=== PATIENT | male | born 1955 | race Caucasian/White ===

== ENCOUNTER 2020-05-24 18:00 | Inpatient (IN) | payer MEDICARE, OTHER ==
[~2020-05-24] VITALS: Ht 175.3 cm; Wt 148.1 kg
--- NOTE | ~2020-05-24 | OR ---
[facility] [address] [place], [place] [address] Draft DATE OF OPERATION: 05/25/2020 SURGEON: Jovanna Crane MD PREOPERATIVE DIAGNOSES: 1. Gross hematuria. 2. Bilateral hydroureteronephrosis, right greater than left. 3. Onjqi-eb-vbmigoh renal failure. POSTOPERATIVE DIAGNOSES: 1. Diffuse, infiltrating, likely greatly advanced bladder tumor. 2. Bilateral hydroureteronephrosis, likely secondary to muscle invasion of bladder tumor, given the presentation noted on cystoscopy today. 3. Nkvpx-es-wgpsobf renal failure, likely secondary to obstruction from diffusely infiltrating bladder mass. NAMES OF PROCEDURES: 1. Urethral dilation from 18-Turkish to 26-Turkish using Socorro sounds. 2. Transurethral resection of bladder tumor - large, complicated. 3. Insertion of a 24-Turkish three-way Randolph catheter over a Sensor wire, then connected to continuous bladder irrigation. ANESTHESIA: General. ESTIMATED BLOOD LOSS: 500 mL. INTRAOPERATIVE FLUIDS: 1. 1300 mL of crystalloid. 2. 2 units of packed red blood cells. COMPLICATIONS: None. SPECIMENS: A very large amount of resected tissue from the hemorrhagic/necrotic bladder mass present within the bladder, sent to pathology for evaluation. DRAINS: PATIENT NAME: JANICE RUIZ OPERATIVE REPORT DATE OF : 59 REPORT #: [id number] PHYSICIAN: JOVANNA CRANE MD PCP: JANI CHARLES MD REPORT IS CONFIDENTIAL AND NOT TO BE RELEASED WITHOUT AUTHORIZATION [facility] [address] [place] [place], [place] [address] Draft A 24-Turkish three-way Randolph catheter, connected to continuous bladder irrigation. INDICATIONS FOR PROCEDURE: Mr. Ruiz is a very pleasant 64-year-old gentleman with a past medical history significant for insulin-dependent diabetes, hypertension, hyperlipidemia, and stage 2 chronic kidney disease, who presented to the Emergency Department yesterday with a one month history of progressively worsening gross hematuria and urinary incontinence symptoms. He was found to have a creatinine of 3 on evaluation in the emergency department. His urinalysis revealed the presence of blood, but no obvious infection. He subsequently underwent a non-contrasted CT of abdomen, which revealed bilateral hydroureteronephrosis, right side greater than left. He also noted with a very large heterogeneous mass within the bladder. Given the lack of contrast, it was difficult to discern whether this mass was a true filling defect or was secondary to a significant amount of blood product from active bleeding. The patient was admitted and Randolph catheter was inserted and the patient was placed on continuous bladder irrigation. He was also made n.p.o. On the following morning, I was able to evaluate him and made the decision to take him to the operating room to undergo cystoscopy with blood clot evacuation and possible TURBT/TURP. OPERATIVE FINDINGS: 1. Given the anticipation of using the resectoscope with a large 26-Turkish sheath, the patient's urethra was prophylactically dilated using Daniella sounds from 18-Turkish to 26-Turkish without difficulty. 2. Cystoscopy revealed a very significant amount of diffuse tumor present throughout the bladder. In particular, there was a very large necrotic mass located in the dome of the bladder. This mass measured approximately 8-10 cm in size and involved the entire dome of the bladder. There was other smaller masses located on the lateral noe and near the trigone of the bladder. As I resected, the large mass present on the dome of the bladder, it became obvious that it was had been there for quite some period of time and was likely heavily infiltrating. There also intermittent areas of hemorrhage within the mass itself. With all of the diffuse amount of bladder mass present throughout the bladder, I was unable to actually identify the bilateral ureteral orifices during the procedure. 3. I used a 24-Turkish bipolar loop to resect as much bladder tumor as I could handle. The sheer volume of tumor was unprecedented in my personal experience. The tumor at the dome of the bladder was so necrotic that it was not friable in nature. This was a very complicated resection, requiring a total resection time of approximately 3 hours. At the end of the resection, there was still a lot of bladder tumor remaining. However, at that time, I made the decision to terminate the procedure and transfer the patient to a higher level of care for definitive management with a urologic oncologist. 4. I did my best to cauterize actively bleeding areas within the wall of the bladder, however, a lot of the cauterization involved the bladder tumor, which made hemostasis a PATIENT NAME: JANICE RUIZ OPERATIVE REPORT DATE OF : 59 REPORT #: [id number] PHYSICIAN: JOVANNA CRANE MD PCP: JANI CHARLES MD REPORT IS CONFIDENTIAL AND NOT TO BE RELEASED WITHOUT AUTHORIZATION [facility] [address] [place] [place], [place] [address] Draft lot more difficult. Overall, at the end of the resection, I had a majority of the significant blood vessels cauterized appropriately. The patient's bladder was irrigated multiple times with a Ernst syringe to retrieve the significant amount of bladder tissue Re bladder tumor tissue resected from during the 3 hour resection. 5. At the end of the procedure, a 24-Turkish three-way Randolph catheter was inserted into the patient's bladder and connected to continuous bladder irrigation. DESCRIPTION OF PROCEDURE: After informed consent was obtained, the patient was taken back to the operating room. He was transferred from the [facility] to the operating room table, where general anesthesia was induced. He was placed in the dorsal lithotomy position and his genitalia were prepped and draped in a standard sterile fashion. His urethra was dilated using Socorro sounds from 18-Turkish to 26-Turkish without difficulty. A 26-Turkish sheath was then inserted using the visual obturator. I immediately noticed the presence of what appeared to be bladder tumor throughout the bladder, and particularly the dome of the bladder appeared to reveal a very large 8-10 cm necrotic infiltrating bladder mass. Again, I was unable to identify the bilateral ureteral orifices due to the extent of the bladder tumor. A 24-Turkish loop was then used to resect the very large tumor on the dome of the bladder, as well as tumors throughout the bladder on both sides. I did my best to avoid any area that would be considered to be near the area of the expected ureteral orifice. Total resection time was approximately 3 hours, making this a very difficult and complicated case. The patient's bladder was irrigated multiple times using a Ernst syringe, which produced a very large amount of necrotic bladder tumor as well as multiple large blood clots. Once I reached the 3-hour resection rowdy, I made the decision to terminate the procedure as at this time I realize that the patient would be best served by a higher level of care, i.e. a urologic oncologist. The tumor appears to be quite diffuse and almost certainly infiltrative. Once I was satisfied with the hemostasis, the patient's bladder was then irrigated one more time. I then passed a 0.035 Sensor wire through the sheath and into the patient's bladder. The sheath was removed fully intact. Over the wire, I passed a 24-Turkish three-way Randolph catheter into the patient's bladder. I filled the balloon with approximately 15 mL of sterile water. The catheter was then manually irrigated multiple times to: 1. Ensure proper placement of the catheter. 2. Irrigate any additional debris and blood clots from the bladder. The catheter was then connected to continuous bladder irrigation and the procedure was terminated. The patient tolerated the procedure well without any complication. He will now be transferred to the postanesthesia care unit in stable condition. DISPOSITION: I discussed the details of today's procedure with the patient's and answered all of her questions. I did notify her that her is a very advanced case of what is likely bladder cancer that is also likely infiltrated into the very far into the muscle PATIENT NAME: JANICE RUIZ OPERATIVE REPORT DATE OF : 59 REPORT #: [id number] PHYSICIAN: JOVANNA CRANE MD PCP: JANI CHARLES MD REPORT IS CONFIDENTIAL AND NOT TO BE RELEASED WITHOUT AUTHORIZATION [facility] [address] [place] [id number] Draft correction very relatively far into the wall of the bladder. I explained to her that this is likely the cause of the obstruction of both kidneys, as advanced and infiltrated bladder cancer very commonly affects drainage of the ureters. I told her that he will need to be transferred to a higher level of care where he can be definitively treated by a urologic oncologist. I suspect that he will likely require a cystectomy and possible neoadjuvant and adjuvant chemotherapy. The patient's verbalized understanding of this and the plan of care. He will be transferred now be transferred back to the floor with continued continuous bladder irrigation. He was given 1 g of IV Rocephin prior to surgery, and he will be given appropriate pain control. Dr. Deon Nascimento has accepted him in transfer after discussion of the case with Dr. Deon Nascimento. The patient will be transferred either later today or tomorrow to [facility] for definitive treatment of his likely advanced bladder cancer. MD KIP Sanders/FITO /[id number] Copies: ~ PATIENT NAME: JANICE RUIZ OPERATIVE REPORT DATE OF : 59 REPORT #: [id number] PHYSICIAN: JOVANNA CRANE MD PCP: JANI CHARLES MD REPORT IS CONFIDENTIAL AND NOT TO BE RELEASED WITHOUT AUTHORIZATION
[~2020-05-24 18:00] MED LIST: ALBUTEROL2.5 MG/3 M INH; ALLOPURINOL100 MG PO; AMLODIPINE BESY10 MG PO; ASPIR-LOW81 MG PO; COZAAR50 MG PO; DILTIAZEM 24HR300 MG PO; FENOFIBRATE54 MG PO; GABAPENTIN300 MG PO; GLUCOPHAGE1000 MG PO; HYDROCHLOROTHIA50 MG PO; IRON325 M1 PO; KLOR-CON M2020 MEQ PO; LIPITOR10 MG PO; MAG6464 MG PO; METOPROLOL SUCC50 MG PO; NOVOLIN N100 UNIT/1 SUB-Q; NOVOLIN R100 UNIT/1 INJ; OMEPRAZOLE20 MG PO; PRAVASTATIN SOD10 MG PO; TAMSULOSIN HCL0.4 MG PO
--- NOTE | 2020-05-24 22:43 | NUR ---
PLACED ON AUTO-TITRATING CPAP. PT DOES NOT KNOW HOME SETTINGS. CPAP RANGE SET BETWEEN [id number]. CURRENTLY TOLERATING WELL. PT HAS REFUSED HEAT IN THE CIRCUIT AT THIS TIME.
--- NOTE | 2020-05-24 23:00 | NUR ---
22fr 3WAY IRRIGATION CATHETER PLACED.
--- NOTE | 2020-05-25 00:59 | NUR ---
PORRAS EMPTIED PRIOR TO IRRIGATION, 400 [place] COLOR URINE OUT. CHANGED OUT CATH BAG, NOTEABLE SIZE CLOT FORMATION TUBING CATH BAG, AND PORRAS. APPROX 1.5 CM LONG, MORE THAN A STRINGY CLOT IN DIAMETER. CURRENTLY IRRIGATION WILL INFUSE THEN STOP. PT STATES STINGING SENSATION WHERE PORRAS GOES IN BUT NO COMPLAINTS, OR CONCERNS ABOUT HOW BLADDER IS FEELING. SLEEPING OFF AND ON WITH CPAP IN PLACE. THIS RN PAPR, ISOLATION PROCEDURES UNTIL COVID TESTING RESULTS AVAILABLE.
--- NOTE | 2020-05-25 01:50 | NUR ---
NOTIFIED DR BORJAS OF NO FLUIDS ORDERED DESPITE H/P INDICATING FLUIDS WOULD BE ORDERED. UPDATED ON PT CONDITION. PLAN TO UPDATE DR CRANE WELL
--- NOTE | 2020-05-25 02:00 | NUR ---
UPDATED DR CRANE. PT PORRAS HAS OUTPUT HOWEVER IRRIGATION IS NOT FLOWING CONSISTENTLY DESPITE IRRIGATION PREVIOUS TO THIS NOTE. SAID TO DECREASE AMOUNT IN BALLOON, REPOSITION, IF PT HAVING OUTPUT THEN OK TO STOP IRRIGATION. PLANS TO SEE PT IN AM. PT CONTINUES NPO
--- NOTE | 2020-05-25 02:15 | NUR ---
PT CALLED, THOUGHT HIS BS WAS LOW, HAD DROPPED HIS METER ON THE FLOOR. HAS AN IMPLANTED DEVICE LEFT UPPER ARM. BLOOD SUGAR WAS 103. NOTED IRRIGATION NOT INFUSIONING PT COMPLAINED OF MORE PRESSURE IN BLADDER AREA. DECREASE BY 15 ML OUT OF BALLOON, WITH NO OUTPUT. IRRIGATED PORRAS AGAIN, LONG STRINGY CLOT OUT WITH SUCCESSFUL OUTPUT. IRRIGATION FLOWING WELL. OUTPUT IN TUBING BRIGHT RED, WITH DECREASE COLOR TO PINK TINGE. PT STATES BLADDER FEELS MUCH BETTER.. EDUCATED PT ON ALARM OF IV. PT PRIMARY RN WILL BE IN SHORTLY. NOTED THAT PT WORE HIS CPAP UP TIL 0130, COMPLAINED HE WASN'T GETTING ENOUGH AIR, SATS IN THE 90'S. PT SAID THAT RT TOLD HIM "SETTINGS WERE AT THE HIGHEST", PT STATES HIS HOME CPAP HAD MORE "AIR". REMOVED CPAP.
--- NOTE | 2020-05-25 03:56 | NUR ---
PT AWAKE, PORRAS EMPTIED, AFTER DEDUCTING IRRIGATION FLUID, PT HAD 2800 OUT. CURRENTLY PORRAS TUBING WITH SL TINGED LIQUID, NOT URINE COLOR YET. PT STATES FEELS GOOD, NO PAIN. IRRIGATION FLOWING WELL, IV INFUSING. PT RECEIVED 1000 IV FLUIDS IN THE ED PRIOR TO ADMISSION. DOSING CURRENTLY.
--- NOTE | 2020-05-25 04:03 | NUR ---
REVIEWED ED NOTES, PT DID RECEIVE 1,000 IV BOLUS. DID VOID 75 PRIOR TO ADMISSION. ENTERED AMOUNT TO UPDATE HIS I/O.
--- NOTE | 2020-05-25 07:06 | NUR ---
Bedside report from ROCK Jorgensen. This nurse introduces self to patient. Patient denies needs at this time. call light in reach, Bed rails up X2.
--- NOTE | 2020-05-25 07:50 | NUR ---
Taken to surgery via bed by ROCK Castellanos.
[2020-05-25] MEDS ORDERED: ALDARA1 EACH TOP (10:54)
[2020-05-25] MEDS ORDERED: HYDROCHLOROTHIA25 MG PO (11:05)
[2020-05-25] MEDS ORDERED: METOPROLOL SUC100 MG PO (11:07)
[2020-05-25] MEDS ORDERED: OMEPRAZOLE40 MG PO (11:08)
--- NOTE | 2020-05-25 12:11 | NUR ---
05/25/20 1211 Molly Gambino 1153-PATIENT ARRIVED TO PACU ON [address]L [address]ASK[address] ST. PATIENT REACTIVE TO VERBAL STIMULI OPENS EYES VERY DROWSY ORAL AIRWAY REMOVED BY ARTHUR RN. [address] WAY CBI GOING INTO PORRAS CATHETER. DRAINING RED INTO PORRAS BAG. CBI OPENED AND URINE FLOW APPEARS MORE CLEAR. PATIENT IS ON 2ND UNIT OF PRBC AND ALMOST FINISHED INFUSING. GLUCOSE CHECKED 203. PATIENT HAS SLEEP APNEA AND PLAN TO SET UP CPAP. PATIENT ENCOURAGED TO TAKE DEEP BREATHES AND O2 INCREASES FROM 89%-92% 1203-PATIENT WEANED TO 6L MASK. RR EVEN. OPENS EYES TO VERBAL STIMULI VERY DROWSY NOT FOLLOWING COMMANDS. 02 SAT 95%
--- NOTE | 2020-05-25 13:31 | NUR ---
PATIENT RETURNS TO ROOM VIA BED WITH OR STAFF. REPORT RECIEVED. ASSESSMENT COMPLETED. PATIENT RESTING WITH EYES CLOSED AT THIS TIME. CONTINUOUS BLADDER IRRIGATION CONTINUES. REMAINS ON LR PER GRAVITY AT THIS TIME. CPAP IN PLACE WITH 4L/MIN OXYGEN BLEED. VS OBTAINED.
--- NOTE | 2020-05-25 14:21 | NUR ---
PT HAS JUST RETURNED FROM OR. DR BORJAS REQUESTED I FOLLOW UP WITH PT AND SPOUSE. PT ASLEEP AND NOT IN RM. WILL CHECK BACK
--- NOTE | 2020-05-25 14:45 | NUR ---
Resting in bed, CPAP remains on patien with O2 at 4l/min. Informed patient of need to remain on hospital CPAP due to O2 use. VS on and remain with slightly elevated BP noted, at baseline. Resp even and unlabored. call light in reach. Urine remains clear at this time. improved CBC noted.
--- NOTE | 2020-05-25 14:59 | NUR ---
FOLLOWING PT RETURNING FROM SURGERY, DR CRANE FELT IT WAS TO PTS' BEST INTERESTS TO BE TRANSFERRED. GAVE HIS SPOUSE LIFEFLIGHT PACK LIST AND CALLED [facility] AND CLARIFIED VISITOR POLICY. SHARED THIS WITH SPOUSE, NOT SURE IF SHE UNDERSTOOD BUT THINGS ARE MOVING VERY FAST. GOD BLESS THEM
[2020-05-25] MEDS ORDERED: CEFTRIAXONE1 G1 IV (15:16)
[2020-05-25] MEDS ORDERED: PROMETHAZINE HC25 MG PR (15:16)
[2020-05-25] MEDS ORDERED: MORPHINE SU4 MG/1 M1 IV (15:18)
[2020-05-25] MEDS ORDERED: BELLADONNA-OPIU30 MG PR (15:18)
[2020-05-25] MEDS ORDERED: OXYCODONE-ACET1 EAC1 PO (15:18)
--- NOTE | 2020-05-25 15:32 | NUR ---
MED REC COMPLETE
--- NOTE | 2020-05-25 16:10 | NUR ---
Taken by stretcher with EMS to be transferred to [facility] in [place], [place].
--- NOTE | 2020-05-25 19:08 | EKG ---
[facility] [address] [facility] [place] [address] Signed Undetermined rhythm Rightward axis Low voltage QRS Incomplete right bundle branch block T wave abnormality, consider inferior ischemia Abnormal ECG When compared with ECG of 28-JUL-2019 08:35, Current undetermined rhythm precludes rhythm comparison, needs review Confirmed by CORY BORJAS MD ([id number]) on 05/25/2020 7:08:42 PM Electronically Signed By: CORY BORJAS MD 05/25/20 1908 PATIENT NAME: JANICE SPAULDING Ronel Electrocardiogram DATE OF : 59 PHYSICIAN: CORY BORJAS MD REPORT #: [id number] REPORT IS CONFIDENTIAL AND NOT TO BE RELEASED WITHOUT AUTHORIZATION
--- NOTE | 2020-05-26 15:58 | PATH ---
[facility] [address] [facility] [place], [place] [address] Signed ORDERING PHYSICIAN: Zuly Velarde MD PATIENT NAME: JANICE SPAULDING GENDER: Jen : 1955 SPECIMEN(S): No Source Given MOLECULAR PATHOLOGY RESULTS: SARS-CoV-2 Not Detected ADDITIONAL NOTES.: The [place] Fusion SARS-CoV-2 Assay is a multiplex real-time PCR (RT-PCR) in vitro diagnostic test intended for the qualitative detection of RNA from SARS-CoV-2 from individuals who meet COVID-19 clinical and/or epidemiological criteria. In general, SARS-CoV-2 RNA can be detected during the acute phase of infection. Positive results indicate the presence of SARS-CoV-2 RNA. Clinical correlation with patient history and other diagnostic information is necessary to determine patient infection status. Positive results do not rule out bacterial infection or co-infection with other viruses. Negative results do not preclude SARS-CoV-2 infection and should not be used as the sole basis for patient management decisions. Negative results must be combined with other clinical observations, patient history, and epidemiological information. The [place] Fusion SARS-CoV-2 Assay is not yet approved or cleared by the [place] FDA. When there are no FDA-approved or cleared tests available, and other criteria are met, FDA can make tests available under an emergency access mechanism called an Emergency Use Authorization (EUA). The EUA for this test is supported by the Department [place] of Health and Human Service's (HHS's) declaration that circumstances exist to justify the emergency use of in vitro diagnostics for the detection and/or diagnosis of the virus that causes COVID-19. This EUA will remain in effect for the duration of the COVID-19 declaration justifying emergency of IVDs, unless it is terminated or revoked by FDA, after which the test may no longer be used. The [place] Fusion SARS-CoV-2 Assay is for use only under EUA in US laboratories certified under the Clinical Laboratory Improvement Amendments of 1988 (CLIA) to perform high complexity tests. [facility] is certified under CLIA to perform high complexity PATIENT NAME: JANICE SPAULDING Ronel PATHOLOGY DATE OF : 59 REPORT #: [id number] PHYSICIAN: LYDIA OLIVA PCP: JANI CHARLES MD REPORT IS CONFIDENTIAL AND NOT TO BE RELEASED WITHOUT AUTHORIZATION [address] [address] Signed clinical laboratory testing. PERFORMING LABORATORY.: Molecular testing was performed by [facility] [address] [place], [place] [address], [place] [address] ([place] [employer]: Dileep Lopez D.O.; CLIA#: [id number]) Diagnostician: System Interface Pathologist Electronically Signed 05/26/2020 Copies: ~ PATIENT NAME: JANICE SPAULDING Ronel PATHOLOGY DATE OF : 59 REPORT #: [id number] PHYSICIAN: LYDIA OLIVA PCP: JANI CHARLES MD REPORT IS CONFIDENTIAL AND NOT TO BE RELEASED WITHOUT AUTHORIZATION
== END 2020-05-25 16:00 | disposition short-term general hospital (02) | DRG 669 ==
LOC: ED 18:00 → MS 20:40
PROVIDERS: Urology; ADMIT Internal Medicine
PROC: 5A09357 Assistance with Respiratory Ventilation, Less than 24 Consecutive Hours, Continuous Positive Airway Pressure (ICD-10-PCS; 2020-05-24)
PROC: 0TBB8ZZ Excision of Bladder, Via Natural or Artificial Opening Endoscopic (ICD-10-PCS; principal; 2020-05-25 08:30)
DX: D49.4 Neoplasm of unspecified behavior of bladder (principal); N17.9 Acute kidney failure, unspecified; N13.30 Unspecified hydronephrosis; Z68.42 Body mass index [BMI] 45.0-49.9, adult; D50.0 Iron deficiency anemia secondary to blood loss (chronic); N13.9 Obstructive and reflux uropathy, unspecified; I12.9 Hypertensive chronic kidney disease with stage 1 through stage 4 chronic kidney disease, or unspecified chronic kidney disease; E11.22 Type 2 diabetes mellitus with diabetic chronic kidney disease; N18.2 Chronic kidney disease, stage 2 (mild); G47.33 Obstructive sleep apnea (adult) (pediatric); E78.00 Pure hypercholesterolemia, unspecified; E66.9 Obesity, unspecified; Z87.891 Personal history of nicotine dependence; Z79.82 Long term (current) use of aspirin; Z79.4 Long term (current) use of insulin; Z79.899 Other long term (current) drug therapy
CPT/HCPCS: 00912; 36415; 80048; 80053; 81001; 85025; 86850; 86900; 86901; 86920; 93005; 93010; 94660; 99284; J0696; J1100; J1170; J2270; J2405; J2704; J3010; J7030; J7040; J7121

== ENCOUNTER 2020-06-07 13:12 | Inpatient (IN) | payer MEDICARE, OTHER ==
[~2020-06-07] VITALS: Ht 175.3 cm; Wt 138.5 kg
[~2020-06-07 13:12] MED LIST changes: +ALDARA1 EACH TOP; +BELLADONNA-OPIU30 MG PR; +CEFTRIAXONE1 G1 IV; +HYDROCHLOROTHIA25 MG PO; +METOPROLOL SUC100 MG PO; +MORPHINE SU4 MG/1 M1 IV; +OMEPRAZOLE40 MG PO; +OXYCODONE-ACET1 EAC1 PO; +PROMETHAZINE HC25 MG PR
--- OUTSIDE RECORDS SUMMARY | 2020-06-07 13:16 | XMS ---
PreManage Notification: JANICE SPAULDING Security Counselor At [employer] Events No recent Security Events currently on file CRITERIA MET - [facility] - 2 Visits in 30 Days CARE PROVIDERS There are no care providers on record at this time. [facility] has no Care Guidelines for this patient. Meri VISIT COUNT (12 MO.) [facility] TOTAL 2 NOTE: Visits indicate total known visits. ED/C VISIT TRACKING (12 MO.) 06/07/2020 13:[address] [facility] TYPE: Emergency COMPLAINT: - MULTIPLE COMPLAINTS 05/24/2020 18:00 [facility] TYPE: Emergency COMPLAINT: - BLOOD IN URINE INPATIENT VISIT TRACKING (12 MO.) 05/25/2020 19:59 [facility] TYPE: Urology DIAGNOSES: - Unsteadiness on feet - infiltrating bladder tumor, gross hematuria, acute on chronic renal failure 05/24/2020 20:40 [facility] TYPE: Medical Surgical COMPLAINT: - ACUTE KIDNEY INJURY DIAGNOSES: - Other shelter (current) drug therapy - Body mass index (BMI) 45.0-49.9, adult - Acute kidney failure, unspecified - Body mass index (BMI) 45.0-49.9, adult - Personal history of nicotine dependence - Type 2 diabetes mellitus with diabetic chronic kidney disease - Obstructive sleep apnea (adult) (pediatric) - longterm (current) use of insulin - Other terminologist (current) drug therapy - Obesity, unspecified - longterm (current) use of insulin - Iron deficiency anemia secondary to blood loss (chronic) - Neoplasm of unspecified behavior of bladder - Personal history of nicotine dependence - Obstructive and reflux uropathy, unspecified - Unspecified hydronephrosis - Hypertensive chronic kidney disease with stage 1 through stag - longterm (current) use of aspirin - Neoplasm of unspecified behavior of bladder - Chronic kidney disease, stage 2 (mild) - Pure hypercholesterolemia, unspecified - longterm (current) use of aspirin - Obstructive sleep apnea (adult) (pediatric) - Unspecified hydronephrosis - Obstructive and reflux uropathy, unspecified - Obesity, unspecified - 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
[2020-06-07] MEDS ORDERED: FEOSOL325 MG PO (13:26)
[2020-06-07] MEDS ORDERED: OXYCODONE HCL5 MG PO (13:28)
[2020-06-08] MEDS ORDERED: SPIRONOLACTONE25 MG PO (07:08)
--- NOTE | 2020-06-08 07:33 | EKG ---
[facility] [address] [facility] [place], [place] [address] Signed Sinus tachycardia Right bundle branch block Abnormal ECG When compared with ECG of 25-MAY-2020 08:13, Previous ECG has undetermined rhythm, needs review Confirmed by CORY BORJAS MD ([id number]) on 06/08/2020 7:33:43 AM Electronically Signed By: CORY BORJAS MD 06/08/20 0733 PATIENT NAME: JANICE SPAULDING Electrocardiogram DATE OF : 59 PHYSICIAN: CORY BORJAS MD REPORT #: [id number] REPORT IS CONFIDENTIAL AND NOT TO BE RELEASED WITHOUT AUTHORIZATION
--- NOTE | 2020-06-08 17:24 | PATH ---
[facility] [address] [place], [place] [address] Signed ORDERING PHYSICIAN: Efrem Charles MD PATIENT NAME: JANICE SPAULDNIG GENDER: Jen : 1955 SPECIMEN(S): CLINICAL HISTORY: Routine Pap Smear MOLECULAR PATHOLOGY RESULTS: SARS-CoV-2 Not Detected ADDITIONAL NOTES.: The Quogue Fusion SARS-CoV-2 Assay is a multiplex real-time PCR (RT-PCR) in vitro diagnostic test intended for the qualitative detection of RNA from SARS-CoV-2 from individuals who meet COVID-19 clinical and/or epidemiological criteria. In general, SARS-CoV-2 RNA can be detected during the acute phase of infection. Positive results indicate the presence of SARS-CoV-2 RNA. Clinical correlation with patient history and other diagnostic information is necessary to determine patient infection status. Positive results do not rule out bacterial infection or co-infection with other viruses. Negative results do not preclude SARS-CoV-2 infection and should not be used as the sole basis for patient management decisions. Negative results must be combined with other clinical observations, patient history, and epidemiological information. The Quogue Fusion SARS-CoV-2 Assay is not yet approved or cleared by the [place] FDA. When there are no FDA-approved or cleared tests available, and other criteria are met, FDA can make tests available under an emergency access mechanism called an Emergency Use Authorization (EUA). The EUA for this test is supported by the [employer] Manager of Health and Human Service's (HHS's) declaration that circumstances exist to justify the emergency use of in vitro diagnostics for the detection and/or diagnosis of the virus that causes COVID-19. This EUA will remain in effect for the duration of the COVID-19 declaration justifying emergency of IVDs, unless it is terminated or revoked by FDA, after which the test may no longer be used. The Quogue Fusion SARS-CoV-2 Assay is for use only under EUA in US laboratories certified under the Clinical Laboratory Improvement PATIENT NAME: JANICE SPAULDING PATHOLOGY DATE OF : 59 REPORT #: [id number] PHYSICIAN: LYDIA PATHOLOGY PCP: EFREM CHARLES MD REPORT IS CONFIDENTIAL AND NOT TO BE RELEASED WITHOUT AUTHORIZATION [facility] [address] [place] [id number] Signed Amendments of 1988 (CLIA) to perform high complexity tests. [facility] is certified under CLIA to perform high complexity clinical laboratory testing. PERFORMING LABORATORY.: Molecular testing was performed by [facility] [address] [place] [id number] (Commercial Drafter: Dileep Lopez D.O.; CLIA#: [id number]) Diagnostician: System Interface Pathologist Electronically Signed 06/08/2020 Copies: ~ PATIENT NAME: JANICE SPAULDING Ronel PATHOLOGY DATE OF : [birth year] REPORT #: [id number] PHYSICIAN: LYDIA PATHOLOGY PCP: EFREM CHARLES MD REPORT IS CONFIDENTIAL AND NOT TO BE RELEASED WITHOUT AUTHORIZATION
[2020-06-15] MEDS ORDERED: AMLODIPINE BESY10 MG PO (12:23)
[2020-06-15] MEDS ORDERED: OXYCODONE HCL5 MG PO (12:24)
[2020-06-15] MEDS ORDERED: TYLENOL325 MG PO (12:25)
[2020-06-15] MEDS ORDERED: MAG-AL LIQUID30 ML PO (12:26)
[2020-06-15] MEDS ORDERED: SENNA LAX8.6 MG PO (12:26)
[2020-06-15] MEDS ORDERED: ONDANSETRON ODT4 MG PO (12:26)
[2020-06-15] MEDS ORDERED: LANTUS100 UNITS/ SUB-Q (12:27)
[2020-06-15] MEDS ORDERED: HUMALOG100 UNITS/ SUB-Q (12:29)
== END 2020-06-16 09:04 | DRG 872 ==
LOC: ED 13:12 → CCU 17:33 → MS 06-10 19:23
PROVIDERS: ADMIT Internal Medicine
DX: A41.50 Gram-negative sepsis, unspecified (principal); N39.0 Urinary tract infection, site not specified; N13.8 Other obstructive and reflux uropathy; N17.9 Acute kidney failure, unspecified; C67.9 Malignant neoplasm of bladder, unspecified; D50.9 Iron deficiency anemia, unspecified; G89.3 Neoplasm related pain (acute) (chronic); E11.65 Type 2 diabetes mellitus with hyperglycemia; Z20.828 Contact with and (suspected) exposure to other viral communicable diseases; I10 Essential (primary) hypertension; K21.9 Gastro-esophageal reflux disease without esophagitis; E78.5 Hyperlipidemia, unspecified; R19.7 Diarrhea, unspecified; E79.0 Hyperuricemia without signs of inflammatory arthritis and tophaceous disease; E83.42 Hypomagnesemia; Z96.0 Presence of urogenital implants; Z79.4 Long term (current) use of insulin
CPT/HCPCS: 36415; 71045; 80048; 80053; 81001; 82728; 83540; 83605; 83735; 84466; 84484; 85025; 87040; 87070; 87075; 87076; 87077; 87088; 87185; 87205; 87493; 93005; 93010; 96361; 96365; 97110; 97116; 97162; 97165; 97530; 97535; 99285-25; C9803; J0780; J1650; J1815; J2405; J2543; J2550; J3475; J3480; J7030; J7060; J7120; J7121

== ENCOUNTER 2022-01-23 12:19 | Emergency (ER) | payer MEDICARE ==
[~2022-01-23] VITALS: Ht 175.3 cm; Wt 138.5 kg
[~2022-01-23 12:19] MED LIST changes: +FEOSOL325 MG PO; +HUMALOG100 UNITS/ SUB-Q; +HUMULIN R100 UNIT/1 SUB-Q; +LANTUS100 UNITS/ SUB-Q; +MAG-AL LIQUID30 ML PO; +NYSTATIN15 G2 TOP; +ONDANSETRON ODT4 MG PO; +OXYCODONE HCL5 MG PO; +PROPRANOLOL HCL20 MG PO; +SENNA LAX8.6 MG PO; +SPIRONOLACTONE25 MG PO; +TYLENOL325 MG PO; +WARFARIN SODIUM5 MG PO
--- OUTSIDE RECORDS SUMMARY | 2022-01-23 12:22 | XMS ---
PreManage Notification: JANICE SPAULDING Security Orthotic Practitioner Events No recent Security Events currently on file CRITERIA MET - [facility]INSON[facility] CARE PROVIDERS LAURA GU Internal Medicine Current PHONE: [phone] JANI CHARLES [facility] 06/08/2020-Current PHONE: [phone] TEJ PATTERSON Physical Medicine \T\ Rehabilitation Current PHONE: [phone] Oracio has no Care Guidelines for this patient. E.D. VISIT COUNT (12 MO.) 1 [facility] TOTAL 1 NOTE: Visits indicate total known visits. ED/UCC VISIT TRACKING (12 MO.) 01/23/2022 12:20 [facility] TYPE: Emergency COMPLAINT: - POSS STROKE INPATIENT VISIT TRACKING (12 MO.) No inpatient visits to display in this time frame [id number]
[2022-01-23] MEDS ORDERED: CARVEDILOL12.5 MG PO (12:35)
--- NOTE | 2022-01-24 17:16 | EKG ---
[facility] [address] [address] Signed Normal sinus rhythm Right bundle branch block Abnormal ECG When compared with ECG of 07-JUN-2020 13:28, Vent. rate has decreased BY 55 BPM Non-specific change in ST segment in Inferior leads Non-specific change in ST segment in Anterior leads Nonspecific T wave abnormality has replaced inverted T waves in Inferior leads T wave inversion no longer evident in Anterior leads Confirmed by YANN MONROY MD ([id number]) on 01/24/2022 5:16:02 PM Electronically Signed By: YANN MONROY MD 01/24/22 1716 PATIENT NAME: JANICE SPAULDING Electrocardiogram DATE OF : 59 PHYSICIAN: YANN MONROY MD REPORT #: [id number] REPORT IS CONFIDENTIAL AND NOT TO BE RELEASED WITHOUT AUTHORIZATION
== END 2022-01-23 15:20 | disposition home or self-care (01) ==
LOC: ED 12:19
DX: I63.9 Cerebral infarction, unspecified (principal); I10 Essential (primary) hypertension; E11.9 Type 2 diabetes mellitus without complications; Z85.51 Personal history of malignant neoplasm of bladder; Z87.891 Personal history of nicotine dependence; Z79.899 Other long term (current) drug therapy; Z79.4 Long term (current) use of insulin; Z20.822 Contact with and (suspected) exposure to COVID-19
CPT/HCPCS: 70450; 80053; 85025; 85610; 85730; 93005; 93010; 99284-25; U0003

== ENCOUNTER 2022-02-14 12:57 | Emergency (ER) | payer MEDICARE ==
[~2022-02-14] VITALS: Ht 175.3 cm; Wt 141.1 kg
[~2022-02-14 12:57] MED LIST changes: +CARVEDILOL12.5 MG PO
--- OUTSIDE RECORDS SUMMARY | 2022-02-14 13:01 | XMS ---
PreManage Notification: JANICE SPAULDING Security Ad Compositor Events No recent Security Events currently on file CRITERIA MET - [facility] - 2 Visits in 30 Days - PDMP CARE PROVIDERS LAURA GU Internal Medicine Current PHONE: [phone] JANI CHARLES [facility] 06/08/2020-Current PHONE: [phone] TEJ APTTERSON Physical Medicine \T\ Rehabilitation Current PHONE: [phone] Oracio has no Care Guidelines for this patient. E.D. VISIT COUNT (12 MO.) 2 GURINDER Douglas TOTAL 2 NOTE: Visits indicate total known visits. ED/UCC VISIT TRACKING (12 MO.) 02/14/2022 12:58 [facility] TYPE: Emergency COMPLAINT: - BLOOD IN URINE 01/23/2022 12:20 [facility] TYPE: Emergency COMPLAINT: - POSS STROKE DIAGNOSES: - Anesthesia of skin - USP (current) use of insulin - Personal history of nicotine dependence - Type 2 diabetes mellitus without complications - Other snf (current) drug therapy - Personal history of malignant neoplasm of bladder - Essential (primary) hypertension - Cerebral infarction, unspecified INPATIENT VISIT TRACKING (12 MO.) No inpatient visits to display in this time frame [id number]
[2022-02-14] MEDS ORDERED: NOVOLOG FL100 UNIT/1 SUB-Q (13:33)
[2022-02-14] MEDS ORDERED: TRESIBA FL200 UNIT/1 SUB-Q (13:34)
[2022-02-14] MEDS ORDERED: CEPHALEXIN500 M1 PO (15:45)
== END 2022-02-14 16:04 | disposition home or self-care (01) ==
LOC: ED 12:57
DX: N39.0 Urinary tract infection, site not specified (principal); I10 Essential (primary) hypertension; E11.9 Type 2 diabetes mellitus without complications; Z87.891 Personal history of nicotine dependence; Z79.4 Long term (current) use of insulin; Z79.899 Other long term (current) drug therapy
CPT/HCPCS: 51701; 81001; 99283-25; A9270

== ENCOUNTER 2022-09-25 16:57 | Emergency (ER) | payer MEDICARE, OTHER ==
[~2022-09-25] VITALS: Ht 175.3 cm; Wt 140.6 kg
[~2022-09-25 16:57] MED LIST changes: +CEPHALEXIN500 M1 PO; +CEPHALEXIN500 MG PO; +MAGNESIUM100 MG PO; +NOVOLOG FL100 UNIT/1 SUB-Q; +TRESIBA FL200 UNIT/1 SUB-Q
[2022-09-25] MEDS ORDERED: CEPHALEXIN500 M1 PO (22:09)
== END 2022-09-25 22:30 | disposition home or self-care (01) ==
LOC: ED 16:57
DX: K43.5 Parastomal hernia without obstruction or gangrene (principal); L03.311 Cellulitis of abdominal wall; I10 Essential (primary) hypertension; E11.9 Type 2 diabetes mellitus without complications; Z79.4 Long term (current) use of insulin; Z86.73 Personal history of transient ischemic attack (TIA), and cerebral infarction without residual deficits; Z87.891 Personal history of nicotine dependence; Z88.8 Allergy status to other drugs, medicaments and biological substances; Z79.899 Other long term (current) drug therapy
CPT/HCPCS: 36415; 74177; 80053; 85025; Q9967

== ENCOUNTER 2023-02-08 13:17 | Inpatient (IN) | payer MEDICARE, OTHER ==
[~2023-02-08] VITALS: Ht 175.3 cm; Wt 137.9 kg
[~2023-02-08 13:17] MED LIST changes: +BACTRIM DS TAB1 EACH PO
--- OUTSIDE RECORDS SUMMARY | 2023-02-08 13:20 | XMS ---
PreManage Notification: JANICE SPAULDING Security Communications Assistant Events No recent Security Events currently on file CRITERIA MET - [facility] - 2 Visits in 30 Days - PDMP CARE PROVIDERS LAURA GU Internal Medicine Current PHONE: [phone] JANI CHARLES [facility] 06/08/2020-Current PHONE: [phone] TEJ PATTERSON Physical Medicine \T\ Rehabilitation Current PHONE: [phone] JOCELIN HULL [facility] Current PHONE: Unknown Oracio has no Care Guidelines for this patient. Meri VISIT COUNT (12 MO.) 1 [facility] 5 GURINDER [facility] TOTAL 6 NOTE: Visits indicate total known visits. ED/UCC VISIT TRACKING (12 MO.) 02/08/2023 13:19 [facility] [place] TYPE: Emergency COMPLAINT: - ABNORMAL LABS 02/07/2023 00:58 [facility] TYPE: Emergency DIAGNOSES: [id number]. Agustín issues [id number]. Acute kidney failure, unspecified 12/24/2022 22:48 [facility] TYPE: Emergency COMPLAINT: - VOMITING DIAGNOSES: - Allergy status to other drugs, medicaments and biological substances - Personal history of transient ischemic attack (TIA), and cerebral infarction without residual deficits - Type 2 diabetes mellitus without complications - terminal worker (current) use of insulin - Hemorrhage of incontinent external stoma of urinary tract - Urinary tract infection, site not specified - Contact with and (suspected) exposure to COVID-19 - Essential (primary) hypertension - Other tank terminal gauger (current) drug therapy - Other medical procedures as the cause of abnormal reaction of the patient, or of later complication, without mention of misadventure at the time of the procedure - Syncope and collapse 09/25/2022 16:58 [facility] TYPE: Emergency COMPLAINT: - WOUND CHECK DIAGNOSES: - Allergy status to other drugs, medicaments and biological substances - Personal history of transient ischemic attack (TIA), and cerebral infarction without residual deficits - Type 2 diabetes mellitus without complications - Parastomal hernia without obstruction or gangrene - terminal worker (current) use of insulin - Essential (primary) hypertension - Cellulitis of abdominal wall - Other tank terminal gauger (current) drug therapy - Personal history of nicotine dependence 03/11/2022 21:23 [facility] TYPE: Emergency COMPLAINT: - BLOOD IN URINE DIAGNOSES: - terminal worker (current) use of insulin - Other tank terminal gauger (current) drug therapy - Hematuria, unspecified - Urinary tract infection, site not specified - Personal history of nicotine dependence - Essential (primary) hypertension - Type 2 diabetes mellitus without complications 02/14/2022 12:58 [facility] TYPE: Emergency COMPLAINT: - BLOOD IN URINE DIAGNOSES: - Personal history of nicotine dependence - Hematuria, unspecified - Urinary tract infection, site not specified - Essential (primary) hypertension - Other assisted (current) drug therapy - Type 2 diabetes mellitus without complications - group home (current) use of insulin INPATIENT VISIT TRACKING (12 MO.) 12/27/2022 15:16 [facility] TYPE: General Medicine DIAGNOSES: - Syncope and collapse - Iron deficiency anemia secondary to blood loss (chronic) - Other specified disorders of urinary system [id number]
[2023-02-08] MEDS ORDERED: AMOX TR-K CLV1 EAC1 PO (17:05)
[2023-02-08] MEDS ORDERED: LOSARTAN POTASS50 MG PO (17:06)
[2023-02-08] MEDS ORDERED: GVOKE HYPO1 MG/0.21 SUB-Q (17:06)
[2023-02-08] MEDS ORDERED: BASAGLAR K100 UNIT/1 SUB-Q (17:07)
[2023-02-08] MEDS ORDERED: MAG6464 MG PO (17:08)
[2023-02-08] MEDS ORDERED: OZEMPIC1 MG/0.71 SUB-Q (17:09)
[2023-02-08 17:47] VITALS: BP 112/50
--- NOTE | 2023-02-08 18:00 | NUR ---
PT ARRIVES TO FLOOR BY THIS RN IN STRETCHER WITH ACCOMPANIED. PT ALERT AND ORIENTED. TRANSFERS TO BED PIVOT TRANSFER, STEADY ON FEET. VS STABLE, AFEBRILE. ADMISSION ASSESMENT COMPLETE MINUS FULL HEAD TO TOE ASSESSMENT, FOCUSED WOUND CHARTING COMPLETE. OSTOMY WAFER REMOVED WITH WIFES EXTENSIVE ASSISTANCE. PICTURES IN CHART. NOTED ARE 2 "HOLES" TO WHAT APPEAR ARE TUNNEL ENTRANCES TO THE RIGHT OF THE OSTOMY. COPIOUS PURULENT DRAINAGE FROM HOLES EXPRESSED WITH SOFT PRESSURE TO SIDE OF OSTOMY. CULTURE OBTAINED. NEW APPLIANCE AND BAG APPLIED. MD MADE AWARE OF WOUND STATUS, PICTURES SHOWN. WOUND CONSULT FOR APPLIANCE SUGGESTED.
--- NOTE | 2023-02-08 18:33 | NUR ---
MED REC COMPLETE
--- NOTE | 2023-02-08 19:34 | NUR ---
PT IS VERY TIRED AFTER HIS DAY IN THE ED. REPORT RECEIVED. PT RESTING IN BED WITH CALL LIGHT IN REACH. NO NEEDS.
--- NOTE | 2023-02-08 21:30 | NUR ---
IV DISCONNECTED AND FLUSHED. IV SITE IS SENSITIVE BUT APPEARS WNL. PT IS A DIFFICULT IV STICK.
[2023-02-08 21:53] VITALS: BP 130/54
--- NOTE | 2023-02-08 23:19 | NUR ---
PT IS SLEEPING QUIETLY IN BED. CALL LIGHT IN REACH.
--- NOTE | 2023-02-08 23:56 | NUR ---
PT HAS A HOSPITAL CPAP ON WITH THE HELP OF RT. HE APPEARS TO BE SLEEPING QUIETLY. CALL LIGHT AT THE BEDSIDE.
[2023-02-09 02:20] VITALS: BP 137/56
--- NOTE | 2023-02-09 04:58 | NUR ---
PT HAS BEEN SLEEPING WELL WITH CPAP. HE HAS NOT CALLED. CALL LIGHT IN REACH.
--- NOTE | 2023-02-09 05:02 | NUR ---
LAB IS AT PT'S BESIDE TO COLLECT AM LABS. PT REQUESTED HEAT BE TURNED OFF ON CPAP UNIT. DONE.
[2023-02-09 05:12] VITALS: BP 143/55
--- NOTE | 2023-02-09 05:23 | NUR ---
VS DONE . PORRAS BAG EMPTIED. UROSTOMY IS DRAINING YELLOW LIQUID WITH THICK PURULENT DRAINAGE. PT DENIES ANY PAIN. HE HAS BEEN SLEEPING WELL WITH CPAP. LAB WAS IN TO DRAW LABS WITHOUT PROBLEM.
--- NOTE | 2023-02-09 07:33 | NUR ---
REPORT RECEIVED FROM NIGHT RN - PT RESTING IN BED, CPAP MASK REMOVED PER PT REQUEST. DENIES FURTHER NEEDS. CALL LIGHT IN REACH.
--- NOTE | 2023-02-09 08:17 | NUR ---
RN IN ROOM TO ADMINISTER BREAKFAST INSULIN COVERAGE. PT DENIES COMPLAINTS. IV SITE PATENT WITH FLUSH BUT TENDER. OSTOMY OUTPUT PURULANT, APPLIANCE INTACT. ADDITIONAL ORDER PLACED FOR HOT CERAL PER PT REQUEST HE DID NOT FIND MORNING MEAL APPITIZING. CALL LIGHT IN LAP.
[2023-02-09 09:43] VITALS: BP 146/63
--- NOTE | 2023-02-09 09:51 | NUR ---
RN IN ROOM TO COMPLETE ASSESSMENT AND VS - PT AFEBRILE, VS STABLE. PT DENIES COMPLAINTS OR PAIN. LUNGS CLEAR. SKIN DIAPHORETIC IN BED, ENCOURAGED SHOWER AND BED LINEN CHANGE LATER TODAY. ADEQUATE APPETITE WITH BREAKFAST. WOUND NURSE IN ROOM TO CONSULT.
--- NOTE | 2023-02-09 10:57 | NUR ---
WOUND CONSULT RN AT BEDSIDE.
--- NOTE | 2023-02-09 12:21 | NUR ---
WOUND CONSULT COLLABORATED WITH PRIMARY NURSE CLAUDE AND HOSPITALIST DR. MARRUFO WITH WOUND CARE MANAGEMENT GOALS AND HISTORY OF PATIENT. DISCUSSED WITH PATIENT CONCERNS AND QUESTIONS DISCUSING PROCESS OF WOUND CARE CONSULT. CALL TO [facility]OUND [facility], NURSE BRAYAN PROVIDED HISTORY OF WOUND CARE REGIME PATIENT HAS BEEN ORDERED AND FOLLOWING. PATIENT REPORTED BEING SEEN Q 14 DAYS AND HAD RECENTLY HAD HIS WOUND CARE ORDERS CHANGED SECONDARY TO THE INCREASED AMOUNT OF DRAINAGE. LAST MEASUREMENTS OF WOUNDS FROM [facility] 01/26/23 WERE REPORTED FROM [facility] NURSE 2CMX 4.5CM X 0.1CM AT THAT TIME THEY STOPPED USING HYDROFERA BLUE AND CHANGED TO MEDIHONEY AND AQUACEL WITH HYDROCOLLOID. PATIENT PRESENT FOR DRESSING CHANGE AND AT BEDSIDE, DR. MARRUFO INTO ROOM. UROSTOMY APPLIANCE TAKEN DOWN, WOUND BED THEN CLEANSED WITH WOUND CLEANSER. NOTED TUNNELING AT TWO OPEN SITES PRXIMAL TO RIGHT SIDE OF UROSTOMY SITE, SEE COMPLEX WOUND ASSESSMENT FOR MEASUREMENTS. INITIAL PLAN TO PACK TUNNELS, WITH FURTHER ASSESMENT NOTED URINE FILLING UP AND SPILLING OUT OF TUNNEL. NOTIFIED DR. MARRUFO WHO AGREED NOT TO PACK THE TUNNELS AT THIS TIME AND THAT HE WOULD SEEK FURTHER CONSULTATION FOR THIS PATIENT. THEN WITH CLAUDE RN ASSISTING CLEANSED AREA WITH WOUND CLEANSER, PAT DRY, APPLIED CAVILON SKIN BARRIER TO LIBERTY WOUND. DISTAL ULCER TO UROSTOMY NOTED TO HAVE HYPERGRANULATION TISSUE WITH LARGE AMOUNT OF YELLOWISH SEROSANGUINIOUS DRAIANGE, APPLIED ACTICOAT WITH AQUACEL AG, REINFORCED WITH SECONDARY DRESSING DUODERM. THEN CUT CONVATEC BARRIER TO FIT AROUND UROSTOMY AND OPEN TUNNELING TO ENCOURAGE DRAINAGE INTO UROSTOMY BAG. STOMA APPEARS TO HAVE ERYTHEMA, AND DRAINING URINE WELL. APPLIED NEW APPLIANCE, URINE DRAINING INTO BAG, NO SIGNS OF LEAKS. DR. LOMAX UPDATED ON DRESSING CHANGE. PLAN TO CHANGE DRESSING DAILY AND NEEDED. CLAUDE PRIMARY RN UPDATED. ANSWERED FAMILIES QUESTIONS AND CONCERNS. VERBALIZED CONCERNS OF MANAGING COMPLEX WOUND IF HOME MANAGEMENT CONTINUES AND REPORTED FEELINGS OF NEEDING MORE INSTRUCTION AND EDUCATION.
--- NOTE | 2023-02-09 12:29 | NUR ---
RN IN ROOM TO ADMINISTER LUNCH INSULIN COVERAGE AND IV ABX. IV SITE FLUSHES WITHOUT PAIN. PT RESTING IN BED WATCHING TV, AT SIDE. DENIES COMPALINTS.
[2023-02-09 15:12] VITALS: BP 143/68
--- NOTE | 2023-02-09 15:16 | NUR ---
PATIENT IN BED AFTER MEAL. VITALS AND I/O'S COMPLETED. UROSTEMY DRAINED AND DOCUMENTED. PT HAS NO OTHER REQUESTS AT THIS TIME. CALL LIGHT WITHIN REACH.
--- NOTE | 2023-02-09 15:30 | NUR ---
RN IN ROOM TO ASSESS PT - UNCHANGED FROM PRIOR. PT DENIES NEEDS, NO COMPLAINTS AT THIS TIME. WAFER IN PLACE AROUND OSTOMY WITHOUT LEAKING. COPIOUS AMOUNTS OF PURULANT DRAINAGE FROM OSTOMY SITE MIXED WITH URINE. IV SITE SALINE LOCKED, ABX INFUSION DONE. VSS.
--- NOTE | 2023-02-09 17:49 | NUR ---
RN IN ROOM TO ADMINISTER DINNER INSULIN COVERAGE. PT RESTING IN BED WATCHING NEWS. DENIES NEEDS OR CONCERNS. PT DID NOT RECIEVE DINNER HE PERSONALLY ORDERED FROM PHONE IN ROOM - DENIES WANTING DINNER NOW. WILL ENTER INTAKE 0%. SUPERVISOR RUBBER COVERING NOTIFIED.
[2023-02-09 18:30] VITALS: BP 119/59
--- NOTE | 2023-02-09 18:35 | NUR ---
PATIENT IN BED AFTER MEAL. VITALS AND I/O'S COMPLETED, PT HAS NO OTHER REQUESTS AT THIS TIME. CALL LIGHT WITHIN REACH.
[2023-02-09 21:22] VITALS: BP 145/61
[2023-02-10 06:22] VITALS: BP 147/61
--- NOTE | 2023-02-10 07:31 | NUR ---
REPORT RECEIVED FROM NIGHT RN, ALL QUESTIONS ANSWERED. PT AWAKE IN BED, UROSTOMY AND WOUND DRESSING CDI. DISCUSSED PLAN OF CARE. PT DENIES NEEDS AT THIS TIME. CALL LIGHT IN REACH
[2023-02-10 08:56] VITALS: BP 130/53
--- NOTE | 2023-02-10 09:01 | NUR ---
PATIENT UP IN CHAIR AFTER MEAL. AM CARE COMPLETED. LINEN CHANGE. WARM BLANKETS GIVEN. VITALS AND I/O'S COMPLETED. UROSTEMY DRAINED AND DOCUMENTED. CALL LIGHT WITHIN REACH.
--- NOTE | 2023-02-10 09:51 | NUR ---
MORNING ASSESSMENT COMPLETE. PT UP IN RECLINER FINISHED BREAKFAST. DRESSING TO UROSTOMY CDI, PURULENT DRAINAGE NOTED IN UROSTOMY BAG. REVIEWED DAILY PLAN OF CARE WITH PATIENT. PT DENIES FURTHER NEEDS AT THIS TIME. CALL LIGHT IN REACH.
[2023-02-10 14:37] VITALS: BP 137/74
[2023-02-10 18:34] VITALS: BP 133/62
--- NOTE | 2023-02-10 18:45 | NUR ---
Wound and urostomy care provided per wound care orders. Pt tolerated well. urostomy draining clear urine, purulent drainage from tunneling sites. Some blood clots noted from ulcerated area above urostomy site.
--- NOTE | 2023-02-10 19:28 | NUR ---
REPORT RECEIVED FROM OFFGOING RNERIC.
[2023-02-10 20:52] VITALS: BP 119/78
--- NOTE | 2023-02-10 21:11 | NUR ---
PT ASSESSMENT COMPLETE. PT RESTING IN BED WITH EYES CLOSED, CPAP IN PLACE APPROPRIATELY. PT WAKES EASILY. DENIES PAIN, SOB, OR NAUSEA. UROSTOMY DRAINGING YELLOW URINE. APPLIANCE AND DRESSING BENEATH C/D/I. PT REPORTS CHRONIC NUMBNESS TO BLE'S. IV FLUSHED WITH 10 ML. SCHEDULED MEDICATION ADMINISTERED. PT DENIES FURTHER NEEDS AT THIS TIME. CALL LIGHT IN REACH.
--- NOTE | 2023-02-10 22:04 | NUR ---
PT ROUNDING. PT RESTING IN BED WITH CPAP IN PLACE APPRIATELY. DOES NOT WAKE WHILE EXHIBITOR SALES AT BEDSIDE. CALL LIGHT IN REACH.
--- NOTE | 2023-02-10 23:47 | NUR ---
pt resting in bed with eyes closed. cpap in place. pt does not wake while screen writer at doorway. call light in reach.
--- NOTE | 2023-02-11 01:45 | NUR ---
PT RESTING IN BED WITH CPAP IN PLACE. RESPIRATIONS EVEN AND UNLABORED. PT DOES NOT WAKE WHILE FABRIC PATTERN GRADER AT DOORWAY. PT APPEARS TO BE SLEEPING. CALL LIGHT IN REACH.
--- NOTE | 2023-02-11 02:55 | NUR ---
PT RESTING IN BED WITH CPAP IN PLACE. SAO2 98%. PT DOES NOT WAKE WHILE WRTER AT BEDSIDE. CALL LIGHT IN REACH.
--- NOTE | 2023-02-11 03:48 | NUR ---
HAND OFF REPORT PROVIDED TO ROCK NOONAN.
--- NOTE | 2023-02-11 04:11 | NUR ---
RECEIVED REPORT FROM TOY WILKERSON. PATIENT IS RESTING IN BED WITH EYES CLOSED AND WEARING CPAP, RR 17. CALL LIGHT IN REACH.
[2023-02-11 05:20] VITALS: BP 142/55
--- NOTE | 2023-02-11 05:57 | NUR ---
PATIENT IS RESTING IN BED WEARING CPAP. PATIENT BRIEFLY OPENS EYES. PATIENT SHAKES HEAD NO WHEN ASKED ABOUT PAIN. NO NEEDS NOTED. CALL LIGHT IN REACH.
--- NOTE | 2023-02-11 06:42 | NUR ---
PATIENT IS RESTING IN BED WITH EYES CLOSED, RR 18. CPAP IN PLACE. CALL LIGHT IN REACH.
--- NOTE | 2023-02-11 07:27 | NUR ---
RECIEVED REPORT FROM PRIVACY DIRECTOR NURSE SARAN.
[2023-02-11 09:27] VITALS: BP 137/65
--- NOTE | 2023-02-11 11:25 | NUR ---
PATIENT SITTING UP AND WATCHING TV CURRENTLY. PATIENT HAS UROSTOMY BAG THAT IS DOING WELL, PATIENT HAS HAD THIS SINCE 2019. PATIENT HAS IV SL ON RIGHT HAND, FLUSHED AND CAUSES PAIN. PATIENT IS DUE FOR MIDLINE TODAY. PATIENT HAS CPAP AT BEDSIDE. CALL LIGHT WITHIN REACH. PATIENT HAS 7 UNITS OF SLIDING SCALE THIS MORNING. PATIENT HAS CONTINOUS PULSE OX ON AND STATING AT 98. PATIENT DENIES ANY OTHER CARES AT THIS TIME.
--- NOTE | 2023-02-11 12:32 | NUR ---
SPOKE TO PATIENT AND ABOUT THE PLAN OF CARE. PATIENT HAS BACTEREMIA AND NEEDS LOMG TERM ABX VIA PICC LINE. PATIENT IS REQUESTING A HOME HEALTH REFERRAL FOR DISCHARGE CARE OF THE PATIENT'S UROSTOMY AND IV ABX THAT ARE NEEDED. PATIENT LIVES AT HOME WITH HIS . PATIENT IS ABLE TO DO HIS ADLS WITH HELP FROM HIS . PATIENT DOES HOT DRIVE AT THIS TIME. PATIENT HAS A WHELLCHAIR AND WALKER PUT DOES NOT USE THEM. PATIENT HAS OSTOMY SUPPLIES LEFT OVER FROM BEING ADMITTED TO [facility]. PATIENT'S WANTS THE SUPPLIES USED. EXPLAINED TO BECAUSE OF SKIN BREAK BREAKE DOWN THE OSTOMY SUPPLIES HAD TO BE CHANGED. REFERRAL SENT TO [facility] FOR ABX. THERAPY AND UROSTOMY CARE. SPOKE TO PWIFE
--- NOTE | 2023-02-11 12:46 | NUR ---
PATIENT UP IN BED, DENIES WANTING TO EAT LUNCH. PATIENT ADVISED THIS NURSE IT SMELLS BAD. ADVISED PATIENT THAT WE COULD GET HIM SOMETHING ELSE TO EAT. PATIENT DENIES BEING HUNGRY AT THIS TIME. ADVISED PATIENT HE CAN ALWAYS CALL DOWN AND ORDER SOMETHING ELSE FOR DINNER THEN WHAT IS ORDERED. PATIENT WILL ASK FOR HELP IF HE WOULD LIKE TO DO THIS. IV ANTIBIOTIC STARTED BUT IV ON RIGHT HAND STARTED TO LEAK. ANTIBIOTIC STOPPED. PATIENT IS A HARD IV START. ARMS IN WARM BLANKETS. VEIN FINDER REQUESTED. D/C RIGHT HAND IV. CATH IN TACT.
--- NOTE | 2023-02-11 12:55 | NUR ---
FAX FOR HOME HEALTH SENT TO [facility]. SPOKE WITH JAN Dhaliwal WITH [facility] TO ADVISE THAT PATIENT WILL BE NEEDING DRESSING CHANGES AND IV ABX IN THE NEXT FEW DAYS. UPDATED THAT WE ARE WAITING FOR FINAL BC, ABX NEED AND PICC LINE PLACEMENT. CALL PLACED TO [facility] [place], LEFT MESSAGE. ADVISED THAT WE ARE IN NEED OF RX ORDER FORM AND ASKED THAT SHE RETUN CALL [facility].
[2023-02-11 13:43] VITALS: BP 144/70
--- NOTE | 2023-02-11 14:33 | NUR ---
MIDLINE INSERTION NOTE WAS ASKED TO PLACE A MIDLINE FOR THIS PT HE HAS DIFFICULT IV ACCESS AND WILL NEED ABX FOR AT LEAST 1 WEEK. PT'S LEFT ARM WAS EXAMINED. THE CEPHALIC, BRACHIAL, AND BASILIC VEINS WERE ALL IDENTIFIED. PT'S CEPHALIC WAS CHOSEN TO USE IT WAS APPROXIMATELY 0.75-1 CM BELOW THE SURFACE AND WAS GOING TO APPROXIMATELY TAKE UP 14% OF THE VEIN ACCORDING TO SITE EVELYNE 8. PT TOLERATED THE PROCEDURE WELL. THE MIDLINE RETURNED RED, NONPULSITILE BLOOD. MED SURG CHARGE NURSE GIVEN REPORT.
--- NOTE | 2023-02-11 15:29 | NUR ---
PATIENT IN ROOM VISITING. UROSTOMY BAG CHANGED OUT, SMALL AMOUNT OF COPIOUS PURULENT DRAINAGE. PATIENT STATES THE DRAINAGE HAS IMPROVED A LOT SINCE YESTERDAY. PATIENT STATES HE HAS NOT FELT LIKE DRINKING MUCH. HIS NORMAL IS MULTIPLE 32OUNCES OF WATER AT HOME. OSTOMY BAG WAS PATIENTS BAG THE OSTOMY BAG HERE AT THE HOSPITAL WAS THE WRONG SIZE. ADDRESSED THIS WITH CASE MANAGEMENT. CALL LIGHT WITHIN REACH, DENIES ANY OTHER CARES AT THIS TIME.
--- NOTE | 2023-02-11 15:38 | NUR ---
PATIENT DENIES WANTING TO GET UP AND TO THE CHAIR.
--- NOTE | 2023-02-11 15:56 | NUR ---
PATIENTS ANTIBIOTIC IS DONE RUNNING. FLUSHED MIDLINE WITH 10ML NS. ARM STILL MEASURING AT 36CM.
[2023-02-11 17:31] VITALS: BP 145/68
--- NOTE | 2023-02-11 17:34 | NUR ---
PATIENT PICKED AT HIS DINNER. HE DOES NOT LIKE THE FOOD HERE. PATIENT PORRAS BAG EMPTIED. INTAKE AND OUTPUT CHARTED. PATIENT SL MIDLINE ON THE LEFT ARM. NO PAIN DISCOMFORT OR SWELLING. PATIENT CURRENTLY WATCHIN TV. CALL LIGHT WITHIN REACH. DENIES ANY OTHER CARES.
--- NOTE | 2023-02-11 19:57 | NUR ---
RECEIVED REPORT FROM DAY SHIFT RN. PATIENT IS RESTING IN BED WATCHING TV. PATIENT DENIES ANY NEEDS. CALL LIGHT IN REACH.
[2023-02-11 21:41] VITALS: BP 141/76
--- NOTE | 2023-02-11 22:05 | NUR ---
PATIENT ASSEMENT COMPLETED. VITALS TAKEN AND RECORDED. INTAKE AND OUTPUT RECORDED. PATIENT HERRERA ANY PAIN. PM MEDS PER ORDER. PATIENT REPORTS HEARTBURN, PRN MED PER ORDER. PATIENTS PM MEDS GIVEN PER ORDER. PATIENTS LEFT MIDLINE HAS BLOOD RETURN, FLUSHES WELL AND IS SL PER ORDER. PATIENT PLACED ON CPAP. NO FURTHER NEEDS NOTED. CALL LIGHT IN REACH.
--- NOTE | 2023-02-12 00:03 | NUR ---
PATIENT IS RESTING IN BED WITH EYES CLOSED, CPOX READINGS ARE WNL. PATIENT IS WEARING CPAP. CALL LIGHT IN REACH.
--- NOTE | 2023-02-12 01:58 | NUR ---
PATIENT IS RESTING IN BED WITH EYES CLOSED, CPOX READINGS ARE WNL. PATIENT CONTINUES TO WEAR CPAP. CALL LIGHT IN REACH.
--- NOTE | 2023-02-12 03:58 | NUR ---
PATIENT IS RESTING IN BED WITH EYES CLOSED, CPOX READINGS ARE WNL. PATIENT CONTINUES TO WEAR CPAP. CALL LIGHT IN REACH.
[2023-02-12 05:06] VITALS: BP 152/66
--- NOTE | 2023-02-12 05:41 | NUR ---
PATIENTS VITALS TAKEN AND RECORDED. PORRAS EMPTIED. INTAKE AND OUTPUT RECORDED. PATIENTS MIDLINE FLUSHED WITH 10ML NS, WASTED 10ML OF NS, BLOOD DRAWN AND PLACE IN APPROPRIATE TUBES AND LABELED, LINE FLUSHED WITH 10ML OF NS AND SL PER ORDER. BLOOD SENT TO LAB. PATIENT DENIES ANY NEEDS. CALL LIGHT AN BELONGINGS ARE WITHIN REACH. PATIENT REMAINS ON CPAP.
--- NOTE | 2023-02-12 07:32 | NUR ---
report received from night rn - pt resting in bed with eyes closed and cpap mask on. RR even and unlabored. call light in reach.
--- NOTE | 2023-02-12 07:48 | NUR ---
PT RESTING IN BED. BIPAP OFF PT NOW. BS TAKEN. RN NOTIFIED. NO NEEDS. CALL LIGHT WITHIN REACH
--- NOTE | 2023-02-12 08:08 | NUR ---
scheduled medications administered. pt up to chair for breakfast with assistance by adjunct sociology professor. bed linens changed, warm blanket provided. pt denies further needs, call light in reach.
--- NOTE | 2023-02-12 09:35 | NUR ---
ASSESSMENT COMPLETE - NO NEW CHANGES - DENIES PAIN. PURULANT DRAINAGE FROM OSTOMY WOUND LESSENING. APPLIANCE TO BE CHANGED LATER TODAY WHEN PRESENT. BOWEL TONES ACTIVE, LUNGS CLEAR. PT REFUSES SHOWER TODAY. MIDLINE FLUSHED - DRESSING C/D/I. APPETITE REMAINS POOR, 10% BREAKFAST EATEN. FRESH ICE WATER PROVIDED.
[2023-02-12 09:45] VITALS: BP 138/68
--- NOTE | 2023-02-12 09:45 | NUR ---
PT IN CHAIR. VITALS AND IS AND OS COMPLETE. NO NEEDS. CALL LIGHT WITHIN REACH.
--- NOTE | 2023-02-12 12:23 | NUR ---
PT ASLEEP, DID NOT DISTURB. WILL CHECK BACK
--- NOTE | 2023-02-12 12:48 | NUR ---
rn rounding on pt - iv abx started. midline flushed, dressing c/d/i. sprite provided, denies further needs. at side.
[2023-02-12 14:12] VITALS: BP 150/70
--- NOTE | 2023-02-12 14:20 | NUR ---
RN IN ROOM ROUNDING WITH MD. ALL QUESTIONS ANSWERED AND CONCERNS ADDRESSED.
[2023-02-12] MEDS ORDERED: CEFTRIAXONE2 G2 IM (14:35)
--- NOTE | 2023-02-12 15:07 | NUR ---
NEW ABX INFUSION STARTED.
[2023-02-12 16:59] VITALS: BP 149/65
--- NOTE | 2023-02-12 17:07 | NUR ---
discharge instructions covered with pt and . all questions answered. dc summary with wound culture results and pictures sent to [facility] office.
== END 2023-02-12 17:05 | disposition home or self-care (01) | DRG 690 ==
LOC: ED 13:17 → MS 13:20
PROVIDERS: ADMIT Family Medicine; ATTEND Internal Medicine
PROC: 05HF33Z Insertion of Infusion Device into Left Cephalic Vein, Percutaneous Approach (ICD-10-PCS; principal; 2023-02-11 14:15)
DX: N39.0 Urinary tract infection, site not specified (principal); N32.2 Vesical fistula, not elsewhere classified; R78.81 Bacteremia; T81.83XA Persistent postprocedural fistula, initial encounter; B95.61 Methicillin susceptible Staphylococcus aureus infection as the cause of diseases classified elsewhere; E11.22 Type 2 diabetes mellitus with diabetic chronic kidney disease; N18.30 Chronic kidney disease, stage 3 unspecified; I12.9 Hypertensive chronic kidney disease with stage 1 through stage 4 chronic kidney disease, or unspecified chronic kidney disease; D72.829 Elevated white blood cell count, unspecified; Z20.822 Contact with and (suspected) exposure to COVID-19; Z87.891 Personal history of nicotine dependence; Z88.8 Allergy status to other drugs, medicaments and biological substances; Z93.6 Other artificial openings of urinary tract status; Z86.73 Personal history of transient ischemic attack (TIA), and cerebral infarction without residual deficits; Z98.890 Other specified postprocedural states; Z85.51 Personal history of malignant neoplasm of bladder; Z79.01 Long term (current) use of anticoagulants; Z79.4 Long term (current) use of insulin; Z79.899 Other long term (current) drug therapy; Y83.3 Surgical operation with formation of external stoma as the cause of abnormal reaction of the patient, or of later complication, without mention of misadventure at the time of the procedure
CPT/HCPCS: 36415; 36569; 80048; 80053; 80202; 83735; 84100; 85025; 87070; 87075; 87186; 87205; 87502; 94660; 94760; 94762; 96365; 96366; 96372; 96376; 99284-25; A9270; C1751; C9803; G0378; J0696; J1650; J1815; J3370; J7060; U0003

== ENCOUNTER 2024-06-05 08:23 | Emergency (ER) | payer MEDICARE ==
[~2024-06-05] VITALS: Ht 175.3 cm; Wt 138.8 kg
[~2024-06-05 08:23] MED LIST changes: +AMOX TR-K CLV1 EAC1 PO; +BASAGLAR K100 UNIT/1 SUB-Q; +CEFTRIAXONE2 G2 IM; +GVOKE HYPO1 MG/0.21 SUB-Q; +LOSARTAN POTASS50 MG PO; +OZEMPIC1 MG/0.71 SUB-Q
[2024-06-05] MEDS ORDERED: SODIUM CHLORIDE 0.9% 1,000 ML IV ONE (08:45)
[2024-06-05] MEDS ORDERED: ondansetron HCL 4 MG/2 ML VIAL IV ONE (08:45)
[2024-06-05 09:25] LABS: BASOPHILS 0.7 % (0-2); EOSINOPHILS 3.4 % (0-6); HEMATOCRIT 30.3 % (35.0-50.0); HEMOGLOBIN 9.7 g/dL (12.0-18.0); LYMPHOCYTES 19.5 % (24-44); MCH 23.9 (27-36); MCHC 31.9 g/dl (30-36); MONOCYTES 4.8 % (0-12); NEUTROPHILS 71.6 % (39-80); PLATELET COUNT 210 K/uL (140-440); RBC 4.05 M/ul (4.3-5.7); RDW 16.3 (10.5-15.0)
[2024-06-05 09:42] LABS: ALBUMIN 2.8 g/dL (3.4-5.0); ALBUMIN/GLOBULIN RATIO 0.52 (1.1-2.4); ANION GAP 14.1 (7-21); BILIRUBIN, TOTAL 0.3 ng/dL (0.2-1.0); BUN/CREATININE RATIO 12.07 (6.0-28.6); CALCIUM 8.8 mg/dL (8.5-10.1); CREATININE, SERUM 2.07 mg/dL (0.70-1.30); POTASSIUM 4.1 mmol/L (3.5-5.1); PROTEIN, TOTAL 8.2 g/dL (6.4-8.2)
[2024-06-05] MEDS ORDERED: ONDANSETRON ODT8 MG PO (10:33)
[2024-06-05] MEDS ORDERED: COMPAZINE25 MG PR (10:33)
[2024-06-05 10:50] VITALS: BP 156/68
--- NOTE | 2024-06-05 16:27 | EKG ---
[facility] [address] [place] [address] Signed Sinus rhythm with 1st degree AV block Low voltage QRS Right bundle branch block Abnormal ECG When compared with ECG of 24-DEC-2022 23:03, [place] interval has increased Criteria for Septal infarct are no longer present Confirmed by SOLO PALOMO MD ([id number]) on 06/05/2024 4:27:05 PM Electronically Signed By: SOLO PALOMO 06/05/24 1627 PATIENT NAME: JANICE SPAULDING Electrocardiogram DATE OF : 59 PHYSICIAN: SOLO PALOMO REPORT #: [id number] REPORT IS CONFIDENTIAL AND NOT TO BE RELEASED WITHOUT AUTHORIZATION
== END 2024-06-05 10:52 | disposition home or self-care (01) ==
LOC: ED 08:23
PROVIDERS: Emergency Medicine
DX: I12.9 Hypertensive chronic kidney disease with stage 1 through stage 4 chronic kidney disease, or unspecified chronic kidney disease (principal); E11.22 Type 2 diabetes mellitus with diabetic chronic kidney disease; N18.9 Chronic kidney disease, unspecified; R11.0 Nausea; Z86.73 Personal history of transient ischemic attack (TIA), and cerebral infarction without residual deficits; Z88.8 Allergy status to other drugs, medicaments and biological substances; Z87.891 Personal history of nicotine dependence; Z79.899 Other long term (current) drug therapy; Z79.4 Long term (current) use of insulin
CPT/HCPCS: 36415; 80053; 83690; 84484; 85025; 93005; 93010; 96374; 99284-25; J2405; J7030